=== PATIENT | female | born 1995 | race Caucasian/White ===

== ENCOUNTER 2018-02-13 23:52 | Outpatient (CLI) | payer BC ==
[2018-02-14] MEDS ORDERED: OXYTOCIN 10 UNITS/ML, 1ML ONE (04:38)
[2018-02-14] MEDS ORDERED: MISOPROSTOL 200 MCG TABLET ONE (04:39)
[2018-02-14] MEDS ORDERED: OXYTOCIN 30U/ 0.9% NaCL 500ML 500 ML ONE (04:39)
[2018-02-15] MEDS ORDERED: OXYC-302 PO (13:39)
[2018-02-15] MEDS ORDERED: IBUP-1222 PO (13:39)
== END 2018-02-14 01:21 | disposition home or self-care (01) ==
LOC: LDOP 23:52
PROVIDERS: ATTEND Obstetrics & Gynecology
DX: O26.899 Other specified pregnancy related conditions, unspecified trimester (principal); Z3A.00 Weeks of gestation of pregnancy not specified
CPT/HCPCS: 59025; 99211; G0463

== ENCOUNTER 2018-02-14 04:35 | Inpatient (IN) | payer BC ==
[~2018-02-14] VITALS: Ht 160 cm; Wt 74.5 kg
[2018-02-14] MEDS ORDERED: D5%-LACTATED RINGERS 1,000 ML IV SCH (04:36)
[2018-02-14] MEDS ORDERED: LACTATED RINGERS 1,000 ML IV SCH (04:36)
[2018-02-14] MEDS ORDERED: OXYTOCIN 30U/ 0.9% NaCL 500ML 500 ML IV ONE (04:36)
[2018-02-14] MEDS ORDERED: LIDOCAINE-MPF 1%, 5ML ONE ×2 (04:48→07:19)
[2018-02-14] MEDS ORDERED: MISOPROSTOL 200 MCG TABLET ONE (04:49)
[2018-02-14] MEDS ORDERED: NEWBORN KIT ONE (04:52)
[2018-02-14] MEDS ORDERED: FENTANYL PF 100 MCG/2ML IVPush PRN (05:00)
[2018-02-14] MEDS ORDERED: SODIUM CITRATE/CITRIC ACID 30 ML UDC PO PRN (05:00)
[2018-02-14] MEDS ORDERED: OXYTOCIN 10 UNITS/ML, 1ML IM PRN (05:00)
[2018-02-14] MEDS ORDERED: FENTANYL PF 100 MCG/2ML IV PRN (05:00)
[2018-02-14] MEDS ORDERED: METOCLOPRAMIDE 5 MG/ML, 2ML IVPush PRN (05:00)
[2018-02-14] MEDS ORDERED: BUPIVACAINE 0.25% ONE (05:05)
[2018-02-14] MEDS ORDERED: FENTANYL PF 100 MCG/2ML ONE (05:05)
[2018-02-14] MEDS ORDERED: FENTANYL/BUPIV./NS/PF 0 ML EPIDCONT ONE (05:06)
[2018-02-14] MEDS: OXYTOCIN 30U/ 0.9% NaCL 500ML 500 ML IV SCH ×2 (05:17→15:17)
[2018-02-14] MEDS ORDERED: DOCUSATE 100 MG CAPSULE PO PRN (05:30)
[2018-02-14] MEDS ORDERED: MAGNESIUM HYDROXIDE 8%, 30ML UDC PO PRN (05:30)
[2018-02-14] MEDS ORDERED: MEASLES,MUMPS&RUBELLA VACC/PF 0.5 ML SQ PRN (05:30)
[2018-02-14] MEDS ORDERED: OXYcodone IR 5MG TABLET PO PRN (05:30)
[2018-02-14] MEDS ORDERED: CALCIUM CARBONATE 500 MG TAB.CHEW PO PRN (05:30)
[2018-02-14] MEDS ORDERED: MISOPROSTOL 200 MCG TABLET PR PRN (05:30)
[2018-02-14] MEDS ORDERED: ONDANSETRON 2MG/ML, 2ML IV PRN (05:30)
[2018-02-14] MEDS ORDERED: DIPH,PERTUSS(ACELL),TET VAC/PF NC IM-VACC PRN (05:30)
[2018-02-14] MEDS ORDERED: RHOGAM FROM BLOOD BANK 1 NOTE EA IM/IV ONE (05:30)
[2018-02-14 05:37] VITALS: BP 125/74
[2018-02-14] MEDS ORDERED: IBUPROFEN 600 MG TABLET ONE (05:44)
[2018-02-14 05:45] LABS: MEAN CORPUSCULAR HEMOGLOBIN 33.4 pg (27.0-34.8); MEAN CORPUSCULAR HGB CONC 34.9 g/dL (32.4-35.8); MEAN CORPUSCULAR VOLUME 95.9 fL (80-100); MEAN PLATELET VOLUME 8.7 fL (7.4-10.4); PLATELET COUNT 159 x10^3/uL (130-400); RED BLOOD COUNT 4.11 x10^6/uL (3.82-5.3); RED CELL DISTRIBUTION WIDTH 13.1 % (9.6-15.2)
[2018-02-14] MEDS: IBUPROFEN 600 MG TABLET PO PRN ×2 (05:56→20:05)
[2018-02-14 06:24] LABS: BASOPHILS # (AUTO) 0.02 x10^3/uL (0-0.1); BASOPHILS % (AUTO) 0 % (0-1); EOSINOPHILS % (AUTO) 0 % (1-7); LYMPHOCYTES # (AUTO) 0.94 x10^3/uL (1-3.4); LYMPHOCYTES % (AUTO) 5 % (22-44); MD SCAN; MONOCYTES # (AUTO) 0.33 x10^3/uL (0.2-0.8); MONOCYTES % (AUTO) 2 % (2-9); NEUTROPHILS # (AUTO) 16.31 x10^3/uL (1.8-6.8); NEUTROPHILS % (AUTO) 93 % (42-75)
[2018-02-14 07:10] VITALS: BP 119/79
[2018-02-14] MEDS: PRENATAL VIT/IRON/FA 1 EACH TABLET PO SCH (09:00)
[2018-02-14] MEDS: OXYcodone/APAP 5/325MG TABLET PO PRN ×2 (10:53→20:05)
[2018-02-14 12:00] VITALS: BP 118/82
[2018-02-14 14:45] LABS: BASOPHILS # (AUTO) 0.04 x10^3/uL (0-0.1); BASOPHILS % (AUTO) 0 % (0-1); EOSINOPHILS % (AUTO) 0 % (1-7); LYMPHOCYTES % (AUTO) 10 % (22-44); MD NO; MEAN CORPUSCULAR HEMOGLOBIN 33.8 pg (27.0-34.8); MEAN CORPUSCULAR HGB CONC 34.5 g/dL (32.4-35.8); MEAN CORPUSCULAR VOLUME 97.9 fL (80-100); MEAN PLATELET VOLUME 8.5 fL (7.4-10.4); MONOCYTES # (AUTO) 0.83 x10^3/uL (0.2-0.8); MONOCYTES % (AUTO) 5 % (2-9); NEUTROPHILS # (AUTO) 15.35 x10^3/uL (1.8-6.8); NEUTROPHILS % (AUTO) 86 % (42-75); PLATELET COUNT 193 x10^3/uL (130-400); RED BLOOD COUNT 4.06 x10^6/uL (3.82-5.3); RED CELL DISTRIBUTION WIDTH 13.5 % (9.6-15.2)
[2018-02-14 16:00] VITALS: BP 113/77
[2018-02-14 19:15] VITALS: BP 127/86
[2018-02-15] VITALS: BP 109/73
[2018-02-15] MEDS: OXYTOCIN 30U/ 0.9% NaCL 500ML 500 ML IV SCH ×2 (01:17→11:17)
[2018-02-15 04:17] VITALS: BP 101/64
[2018-02-15] MEDS: IBUPROFEN 600 MG TABLET PO PRN (05:26)
[2018-02-15] MEDS: OXYcodone/APAP 5/325MG TABLET PO PRN (05:26)
[2018-02-15 07:00] VITALS: BP 105/69
[2018-02-15] MEDS: PRENATAL VIT/IRON/FA 1 EACH TABLET PO SCH (08:49)
[2018-02-15] MEDS ORDERED: IBUP-1222 PO (13:39)
[2018-02-15] MEDS ORDERED: OXYC-302 PO (13:39)
== END 2018-02-15 12:05 | disposition home or self-care (01) | DRG 775 ==
LOC: LDOP 04:35 → LDIP 04:38 → 2NW 07:21
PROVIDERS: ADMIT Obstetrics & Gynecology; ATTEND Obstetrics & Gynecology
PROC: 10E0XZZ Delivery of Products of Conception, External Approach (ICD-10-PCS; principal; 2018-02-14)
PROC: 0HQ9XZZ Repair Perineum Skin, External Approach (ICD-10-PCS; 2018-02-14)
DX: O69.81X0 Labor and delivery complicated by cord around neck, without compression, not applicable or unspecified (principal); O70.0 First degree perineal laceration during delivery; Z37.0 Single live birth; Z83.3 Family history of diabetes mellitus; Z3A.00 Weeks of gestation of pregnancy not specified; Z23 Encounter for immunization
CPT/HCPCS: 36415; 85025; 86850; 86900